=== PATIENT | male | born 1960 | race Caucasian/White ===

== ENCOUNTER 2023-05-23 07:49 | Day surgery (SDC) | payer BC, OTHER ==
[~2023-05-23 07:49] MED LIST: EPINEPHrine 1 MG/ML SDV ONE; Morphine 8 MG, EPINEPHrine 0.3 MG, Cefuroxime 750 MG, Ketorolac 30 MG, Sodium Chloride ... PRN; Ropivacaine 0.5% 5 MG/ML 30 ML SDV ONE
[2023-05-23] MEDS ORDERED: oxyCODONE ER 10 MG TAB.ER PO SCH (08:00)
[2023-05-23] MEDS ORDERED: Acetaminophen 325 MG Tab PO SCH (08:00)
[2023-05-23] MEDS ORDERED: Pregabalin 25 MG Cap PO SCH (08:00)
[2023-05-23] MEDS ORDERED: Midazolam 1 MG/ML 2 ML SDV ONE (08:22)
[2023-05-23] MEDS ORDERED: Propofol 200 MG/20 ML SDV ONE ×2 (08:22→08:27)
[2023-05-23] MEDS ORDERED: fentaNYL 100 MCG/2 ML SDV ONE (08:22)
[2023-05-23] MEDS ORDERED: Lidocaine 1% 5 ML VIAL ONE (08:22)
[2023-05-23] MEDS ORDERED: Ondansetron 4 MG/2 ML SDV ONE (08:27)
[2023-05-23] MEDS ORDERED: Dexamethasone 4 MG/ML 5 ML MDV ONE (08:27)
[2023-05-23] MEDS ORDERED: Vancomycin 1 GM SDV ONE (09:04)
[2023-05-23] MEDS ORDERED: Bupivacaine 0.25% 10 ML SDV ONE (09:04)
[2023-05-23] MEDS ORDERED: Triamcinolone Acetonide 40 MG/ML 1 ML SDV ONE (09:04)
[2023-05-23] MEDS ORDERED: Tranexamic Acid 1,000 MG/10 ML Vial ONE (09:04)
[2023-05-23 09:09] LABS: INR 1.02; PROTHROMBIN TIME 10.9 SECONDS (9.7-12.0)
[2023-05-23 09:10] LABS: PTT,PARTIAL THROMBOPLSTIN TIME 30.1 SECONDS (21.7-31.4)
[2023-05-23] MEDS ORDERED: HYDROmorphone 0.5 MG/0.5 ML Syringe IVPUSH PRN (09:47)
[2023-05-23] MEDS ORDERED: fentaNYL 100 MCG/2 ML SDV IVPUSH PRN (09:47)
[2023-05-23] MEDS ORDERED: Ondansetron 4 MG/2 ML SDV IVPUSH PRN (09:47)
[2023-05-23] MEDS ORDERED: ceFAZolin 2 GM Vial ONE (10:11)
[2023-05-23] MEDS ORDERED: ePHEDrine 50 MG/ML SDV ONE (10:34)
[2023-05-23] MEDS ORDERED: Lactated Ringers 1,000 ML ONE ×2 (10:47→11:00)
[2023-05-23] MEDS ORDERED: Sodium Chloride 0.9% 10 ML Syringe FLUSH PRN (10:47)
[2023-05-23] MEDS ORDERED: Lactated Ringers 1,000 ML IV SCH (11:00)
[2023-05-23] MEDS ORDERED: Sodium Chloride 0.9% 10 ML Syringe FLUSH SCH (11:15)
[2023-05-23] MEDS ORDERED: Ketorolac 30 MG/ML SDV ONE (11:54)
[2023-05-23] MEDS ORDERED: Dexmedetomidine 200 MCG/2 ML SDV ONE (13:59)
[2023-05-23] MEDS ORDERED: oxyCODONE 5 MG Tab PO SCH (15:15)
[2023-05-23 16:02] VITALS: BP 114/60; PULSE 85
== END 2023-05-23 15:15 | disposition home or self-care (01) ==
LOC: JD.SDS 07:49
PROVIDERS: ATTEND Orthopaedic Surgery
DX: M17.0 Bilateral primary osteoarthritis of knee (principal); I10 Essential (primary) hypertension; E78.00 Pure hypercholesterolemia, unspecified; E11.9 Type 2 diabetes mellitus without complications; E03.9 Hypothyroidism, unspecified; M19.90 Unspecified osteoarthritis, unspecified site; E66.9 Obesity, unspecified; Z98.890 Other specified postprocedural states; Z79.84 Long term (current) use of oral hypoglycemic drugs; Z79.82 Long term (current) use of aspirin; Z79.899 Other long term (current) drug therapy; F17.210 Nicotine dependence, cigarettes, uncomplicated
CPT/HCPCS: 01402; 36415; 64447; 73560-26-LT; 73560-LT; 85610; 85730; 97116-GP; 97161-GP; A9270-GY; C1713; C1776; J0171; J0690; J0697; J1100; J1885; J2250; J2270; J2405; J2704; J2795; J3010; J3301; J3370; J3490; J7030; J7120

== ENCOUNTER 2023-07-24 06:47 | Day surgery (SDC) | payer OTHER ==
[~2023-07-24 06:47] MED LIST changes: -EPINEPHrine 1 MG/ML SDV ONE; +HYDROmorphone 0.5 MG/0.5 ML Syringe IVPUSH PRN; +Ketamine 200 MG/20 ML MDV ONE; +Lactated Ringers 1,000 ML IV SCH; +Midazolam 1 MG/ML 2 ML SDV ONE; -Morphine 8 MG, EPINEPHrine 0.3 MG, Cefuroxime 750 MG, Ketorolac 30 MG, Sodium Chloride ... PRN; +Ondansetron 4 MG/2 ML SDV IVPUSH PRN; +Ondansetron 4 MG/2 ML SDV ONE; +Propofol 200 MG/20 ML SDV ONE; -Ropivacaine 0.5% 5 MG/ML 30 ML SDV ONE; +Sodium Chloride 0.9% 10 ML Syringe FLUSH PRN; +Sodium Chloride 0.9% 10 ML Syringe FLUSH SCH; +fentaNYL 100 MCG/2 ML SDV IVPUSH PRN; +fentaNYL 100 MCG/2 ML SDV ONE
[2023-07-24] MEDS ORDERED: Ropivacaine 0.5% 5 MG/ML 30 ML SDV ONE (06:56)
[2023-07-24] MEDS ORDERED: Lidocaine 1% 10 ML MDV ONE (06:56)
[2023-07-24 09:15] VITALS: BP 153/95; PULSE 80
== END 2023-07-24 08:08 | disposition home or self-care (01) ==
LOC: JD.SDS 06:47
PROVIDERS: ATTEND Orthopaedic Surgery
DX: M24.662 Ankylosis, left knee (principal); I10 Essential (primary) hypertension; I48.11 Longstanding persistent atrial fibrillation; E11.9 Type 2 diabetes mellitus without complications; E78.00 Pure hypercholesterolemia, unspecified; I25.2 Old myocardial infarction; E66.9 Obesity, unspecified; Z68.37 Body mass index [BMI] 37.0-37.9, adult; F17.220 Nicotine dependence, chewing tobacco, uncomplicated; Z79.01 Long term (current) use of anticoagulants; Z79.82 Long term (current) use of aspirin; Z79.899 Other long term (current) drug therapy
CPT/HCPCS: 27599; J2250; J2405; J2704; J2795; J3010; J7120; 01380; 64447; J3490